=== PATIENT | male | born 1995 | race Caucasian/White ===

== ENCOUNTER 2021-05-26 11:15 | Emergency (ER) | payer OTHER ==
[~2021-05-26] VITALS: Ht 167.6 cm; Wt 56.7 kg
--- NOTE | 2021-05-26 11:30 | NUR ---
[facility] for medical clearance c/o R middle finger/r wrist pain x 7 days. On room air, breathing evenly and unlabored. Connected to the monitor and pulse ox Kept comfortable, will continue to monitor accordingly.
[2021-05-26] MEDS ORDERED: LIDOCAINE /MPF 1% VIAL 5 ML VIAL ONE (11:35)
[2021-05-26] MEDS ORDERED: LIDOCAINE 1% INJ 50 ML MDV IJ ONE (12:00)
[2021-05-26] MEDS ORDERED: BACITRACIN ZINC OINT PACKET 1 EA PACKET TP ONE (12:00)
[2021-05-26] MEDS ORDERED: SULF1TAB48 PO (12:05)
[2021-05-26] MEDS ORDERED: CEPH500C2 PO (12:05)
[2021-05-26] MEDS ORDERED: IBUP-1955 PO (12:05)
[2021-05-26 12:25] VITALS: BP 128/88
--- NOTE | 2021-05-26 12:25 | NUR ---
patient left in stable condition accompanied by [employer] in no distress.
[2021-05-26] MEDS ORDERED: TDAP [DIPH/PERTUSSIS/TET] 0.5 ML VIAL IM ONE (12:30)
== END 2021-05-26 12:25 ==
LOC: ER 11:27
DX: S60.462A Insect bite (nonvenomous) of right middle finger, initial encounter (principal); L08.9 Local infection of the skin and subcutaneous tissue, unspecified; L98.499 Non-pressure chronic ulcer of skin of other sites with unspecified severity; W57.XXXA Bitten or stung by nonvenomous insect and other nonvenomous arthropods, initial encounter; Y93.89 Activity, other specified; Y92.89 Other specified places as the place of occurrence of the external cause; Y99.8 Other external cause status
CPT/HCPCS: 99283; A6403; J3490